=== PATIENT | female | born 1990 | race Caucasian/White ===

== ENCOUNTER 2018-08-07 16:57 | Emergency (ER) | payer SELFPAY ==
[2018-08-07] MEDS ORDERED: HYDROMORPHONE HCL INJ/PF 2 MG/ML AMPULE IV ONE (18:15)
--- NOTE | 2018-08-07 18:17 | ER Document Report ---
ED Medical Screen (RME) - General Chief Complaint: Back Injury Stated Complaint: BACK INJURY Time Seen by Provider: 08/07/18 17:49 Mode of Arrival: Ambulatory Information source: Patient Notes: Patient states that her grandfather was up in a tree and was about to fall out of the tree. Patient states that she got underneath him and told her grandfather that she would catch him. Patient reports that her grandfather fell about 10 feet out of the tree and landed on her upper chest area. Patient states that they both fell to the ground after she caught him. Patient states she felt a sudden pop in her back and since then has had pain to the back area both thoracic and lumbar. Patient states pain is worse along the bra strap and wraps around to the epigastrium of her abdomen. Patient does complain of some chest discomfort. Patient complains of pain with inspiration and states that she cannot stand up straight. Patient denies any previous history of back issues. I have greeted and performed a rapid initial assessment of this patient. A comprehensive ED assessment and evaluation of the patient, analysis of test results and completion of the medical decision making process will be conducted by additional ED providers. TRAVEL OUTSIDE OF THE [place] IN LAST 30 DAYS: No - Related Data Allergies/Adverse Reactions: codeine Allergy (Verified 08/07/18 16:59) Physical Exam - Vital signs Vitals: Temp Pulse Resp BP Pulse Ox 98.2 F 100 16 128/81 H 100 08/07/18 17:22 08/07/18 17:22 08/07/18 17:22 08/07/18 17:22 08/07/18 17:22 - Back Back: Vertebra tenderness - T5 through 8 spinal tenderness, lumbar tenderness Course - Re-evaluation Re-evalutation: 08/07/18 18:17 Consulted with radiologist regarding patient presentation and areas of tenderness. Recommends CT of the chest with contrast - Vital Signs Vital signs: Temp Pulse Resp BP Pulse Ox 98.2 F 100 16 128/81 H 100 08/07/18 17:22 08/07/18 17:22 08/07/18 17:22 08/07/18 17:22 08/07/18 17:22
[2018-08-07] MEDS ORDERED: ONDANSETRON HCL INJ/PF 4 MG/2 ML SDV IV ONE (18:41)
[2018-08-07 18:52] LABS: ABSOLUTE BASOPHILS # (AUTO) 0.1 10^3/uL (0.0-0.2); ABSOLUTE EOSINOPHILS # (AUTO) 0.2 10^3/uL (0.0-0.6); ABSOLUTE LYMPHOCYTES (AUTO) 3.1 10^3/uL (0.5-4.7); ABSOLUTE MONOCYTES (AUTO) 1.1 10^3/uL (0.1-1.4); ABSOLUTE NEUT (AUTO) 9.3 10^3/uL (1.7-8.2); BASOPHILS % (AUTO) 0.7 % (0-2); EOSINOPHILS % (AUTO) 1.3 % (0-6); HEMATOCRIT 38.5 % (36.0-47.0); HEMOGLOBIN 13.3 g/dL (12.0-15.5); LYMPHOCYTES % (AUTO) 22.6 % (13-45); MEAN CORPUSCULAR HEMOGLOBIN 29.9 pg (27.0-33.4); MEAN CORPUSCULAR HGB CONC 34.5 g/dL (32.0-36.0); MEAN CORPUSCULAR VOLUME 87 fl (80-97); MONOCYTES % (AUTO) 8.2 % (3-13); PLATELET COUNT 402 10^3/uL (150-450); RED BLOOD COUNT 4.44 10^6/uL (3.72-5.28); RED CELL DISTRIBUTION WIDTH 12.9 % (11.5-14.0); SEGMENTED NEUTROPHILS % (AUTO) 67.2 % (42-78); TOTAL CELLS COUNTED % (AUTO) 100 %; WHITE BLOOD COUNT 13.8 10^3/uL (4.0-10.5)
[2018-08-07 19:08] LABS: ANION GAP 13 (5-19); BLOOD UREA NITROGEN 11 mg/dL (7-20); CALCIUM 9.6 mg/dL (8.4-10.2); CARBON DIOXIDE 26 mmol/L (22-30); CHLORIDE 105 mmol/L (98-107); GLUCOSE 99 mg/dL (75-110); POTASSIUM 4.3 mmol/L (3.6-5.0); SODIUM 143.5 mmol/L (137-145)
--- NOTE | 2018-08-07 19:47 | RADIOLOGY REPORT (SQ) ---
EXAM DESCRIPTION: CT ABD/PELVIS WITH IV ONLY; CT CHEST WITH COMPLETED DATE/TIME: 08/07/2018 7:34 pm REASON FOR STUDY: person fell 10 ft onto pt, low back/abd pain; person fell 10 ft onto pt, Thoracic/ chest pain COMPARISON: None. CONTRAST TYPE AND DOSE: contrast/concentration: Isovue 350.00 mg/ml; Total Contrast Delivered: 77.0 ml; Total Saline Delivered: 67.0 ml RENAL FUNCTION: None required. The patient is less than 50 years old. TECHNIQUE: CT scan of the chest performed using helical scanning technique with dynamic intravenous contrast injection. Images reviewed with lung, soft tissue and bone windows. Reconstructed coronal a nd sagittal MPR images reviewed. All images stored on PACS. CT scan of the abdomen and pelvis performed with intravenous contrast using helical scanning techniqu e with dynamic intravenous contrast injection. Images reviewed with lung, soft tissue and bone windo ws. Reconstructed coronal and sagittal MPR images reviewed. Delayed images for evaluation of the ur inary system also acquired and evaluated. All images stored on PACS. All CT scanners at this facility use dose modulation, iterative reconstruction, and/or weight based d osing when appropriate to reduce radiation dose to as low as reasonably achievable (ALARA). [facility]: Dose Right [facility]: CareDose [facility]: Dose Right [facility]: Teradose 4D [facility]: Smart [employer] RADIATION DOSE: CT Rad equipment meets quality standard of care and radiation dose reduction techniq ues were employed. CTDIvol: 7.8 - 11.4 mGy. DLP: 1101 mGy-cm. . LIMITATIONS: None. FINDINGS: CHEST: AXILLAE: No adenopathy. CHEST WALL: No masses. No subcutaneous air. LUNGS: No nodules or masses. No pneumothorax. No infiltrates. PLEURA: No effusions. No calcifications. THYROID: No masses or significant asymmetry. HILAR AND MEDIASTINAL STRUCTURES: No identified masses or abnormal nodes. AORTA AND GREAT VESSELS: No aneurysm. No dissection. PULMONARY ARTERIES: No identified pulmonary emboli. Study not optimized for the pulmonary arteries. HEART: No pericardial effusion. HARDWARE AND LIFELINES: None. BONES: No significant finding. No fractures P OTHER: No other significant finding. ABDOMEN AND PELVIS: LIVER: Normal size. No masses. No dilated ducts. SPLEEN: Normal size. No focal lesions. PANCREAS: No masses. No significant calcifications. No adjacent inflammation or peripancreatic flui d collections. Pancreatic duct not dilated. GALLBLADDER: Surgically absent. ADRENAL GLANDS: No significant masses or asymmetry. RIGHT KIDNEY AND URETER: No solid masses. No significant calcifications. No hydronephrosis or hyd roureter. LEFT KIDNEY AND URETER: No solid masses. No significant calcifications. No hydronephrosis or hydr oureter. AORTA AND VESSELS: No aneurysm. No dissection. Renal arteries, SMA, celiac without stenosis. RETROPERITONEUM: No retroperitoneal adenopathy, hemorrhage or masses. LARGE AND SMALL BOWEL: No dilatation. No masses. No wall thickening. APPENDIX: Normal. ABDOMINAL WALL: No hernia or masses. PERITONEAL CAVITY: No free air. No free fluid. No peritoneal implants or masses. PELVIS: No mass or free fluid. Normal bladder. BONES: No significant or acute findings. No fractures. OTHER: No other significant finding. IMPRESSION: NORMAL CT OF THE CHEST WITH IV CONTRAST. NORMAL CT OF THE ABDOMEN AND PELVIS WITH INTRAVENOUS CONTRAST. TECHNICAL DOCUMENTATION: JOB ID: [id number] Quality ID # [id number]: Final reports with documentation of one or more dose reduction techniques (e.g., Au tomated exposure control, adjustment of the mA and/or kV according to patient size, use of iterative reconstruction technique) 2010 [employer]- All Rights Reserved Reading location - IP/workstation name: [email or web address]
[2018-08-07 19:53] LABS: APPEARANCE,URINE CLOUDY; BILIRUBIN,URINE NEGATIVE (NEGATIVE); COLOR,URINE YELLOW; GLUCOSE, URINE NEGATIVE (NEGATIVE); KETONES,URINE NEGATIVE (NEGATIVE); LEUKOCYTE ESTERASE,URINE MODERATE (NEGATIVE); NITRITE,URINE NEGATIVE (NEGATIVE); PROTEIN,URINE NEGATIVE (NEGATIVE); UROBILINOGEN,URINE NEGATIVE mg/dL (<2.0)
[2018-08-07] MEDS ORDERED: CYCLOBENZAPRINE HCL 10 MG TABLET PO ONE (20:11)
[2018-08-07] MEDS ORDERED: KETOROLAC TROMETHAMINE INJ/PF 30 MG/1 ML SDV IV ONE (20:11)
--- NOTE | 2018-08-07 20:52 | ER Document Report ---
ED General - General Chief Complaint: Back Injury Stated Complaint: BACK INJURY Time Seen by Provider: 08/07/18 17:49 Mode of Arrival: Ambulatory Notes: RME provider note: Patient states that her grandfather was up in a tree and was about to fall out of the tree. Patient states that she got underneath him and told her grandfather that she would catch him. Patient reports that her grandfather fell about 10 feet out of the tree and landed on her upper chest area. Patient states that they both fell to the ground after she caught him. Patient states she felt a sudden pop in her back and since then has had pain to the back area both thoracic and lumbar. Patient states pain is worse along the bra strap and wraps around to the epigastrium of her abdomen. Patient does complain of some chest discomfort. Patient complains of pain with inspiration and states that she cannot stand up straight. Patient denies any previous history of back issues. My Hpi: same as above PMH: Crohn's Medications: Calcium supplements and Depo Allergies: Codeine Surgical history: Cholecystectomy Patient denies cigarette smoking, denies illicit drug use, denies EtOH use. TRAVEL OUTSIDE OF THE [place] IN LAST 30 DAYS: No - Related Data Allergies/Adverse Reactions: codeine Allergy (Verified 08/07/18 16:59) Past Medical History - General Information source: Patient - Social History Smoking Status: Smoker,Current Status Unk Chew tobacco use (# tins/day): No Frequency of alcohol use: None Drug Abuse: None Lives with: Family Family History: Reviewed & Not Pertinent Patient has suicidal ideation: No Patient has homicidal ideation: No Renal/ Medical History: Denies: Hx Peritoneal Dialysis Review of Systems - Review of Systems Constitutional: No symptoms reported EENT: No symptoms reported Cardiovascular: See HPI Respiratory: See HPI Gastrointestinal: See HPI Genitourinary: No symptoms reported Female Genitourinary: No symptoms reported Musculoskeletal: See HPI Skin: No symptoms reported Hematologic/Lymphatic: No symptoms reported Neurological/Psychological: No symptoms reported Physical Exam - Vital signs Vitals: Temp Pulse Resp BP Pulse Ox 98.2 F 100 16 128/81 H 100 08/07/18 17:22 08/07/18 17:22 08/07/18 17:22 08/07/18 17:22 08/07/18 17:22 - Notes Notes: GENERAL: Alert, interacts well. No acute distress. HEAD: Normocephalic, atraumatic. EYES: Pupils equal, round, and reactive to light. Extraocular movements intact. ENT: Oral mucosa moist, tongue midline. Nares patent, no nasal septal hematoma, TM's intact, no hemotympanum bilaterally NECK: Full range of motion. Supple. Trachea midline. LUNGS: Clear to auscultation bilaterally, no wheezes, rales, or rhonchi. No respiratory distress. No crepitus or paradoxical motion noted on examination of chest HEART: Regular rate and rhythm. No murmur ABDOMEN: Soft, non-tender. Non-distended. Bowel sounds present in all 4 quadrants. Minor epigastrium pain upon palpation EXTREMITIES: Moves all 4 extremities spontaneously. No edema, normal radial and dorsalis pedis pulses bilaterally. No cyanosis. BACK: no cervical, lumbar midline tenderness. No saddle anesthesia, normal distal neurovascular exam. Patient does admit to some minor thoracic midline pain upon palpation that radiates around her bra line to her epigastrium NEUROLOGICAL: Alert and oriented x3. Normal speech. cranial nerves II through XII grossly intact. PSYCH: Normal affect, normal mood. SKIN: Warm, dry, normal turgor. No rashes or lesions noted. No bruising, erythema noted to entire trunk. Course - Re-evaluation Re-evalutation: 08/07/18 20:55 Discussed with patient at length her CT results. No signs of fractures or internal bleeding. Patient states she continues with generalized pain around her bra area. Discussed likely contusion of the area. Stated taking home Tylenol and Motrin and will prescribe Flexeril for muscle pain. 08/07/18 20:56 Patient is overall relieved that her CT scans came back negative. Discussed need to follow-up with primary care provider in the next 24-48 hours. Return precautions discussed. - Vital Signs Vital signs: Temp Pulse Resp BP Pulse Ox 98.2 F 100 16 128/81 H 100 08/07/18 17:22 08/07/18 17:22 08/07/18 17:22 08/07/18 17:22 08/07/18 17:22 - Laboratory Result Diagrams: 08/07/18 18:37 08/07/18 18:37 Laboratory results interpreted by me: 08/07/18 08/07/18 18:37 18:48 WBC 13.8 H Absolute Neutrophils 9.3 H Urine Blood SMALL H Ur Leukocyte Esterase MODERATE H Discharge - Discharge Clinical Impression: Rib pain Fall Qualifiers: Encounter type: initial encounter Qualified Code(s): W19.XXXA - Unspecified fall, initial encounter Condition: Stable Disposition: HOME, SELF-CARE Instructions: Anti-Inflammatory Medication ([facility]), Chest Wall Pain ([facility]), Muscle Strain ([facility]), Warm Packs ([facility]), Ice Packs ([facility]) Additional Instructions: As we discussed your CT images today revealed no signs of fracture or internal bleeding. You did sustain an injury and you may be in pain for the next couple of days. Please take [id number] Tylenol and Motrin. Please also take Flexeril as prescribed. Please make an appointment with your primary care provider in the next 24-40 hours. Please return to the emergency room for any other concerning symptoms. Prescriptions: Cyclobenzaprine HCl [Flexeril 10 mg Tablet] 10 mg PO TIDP PRN #15 tab PRN Reason:
[2018-08-07 21:33] VITALS: BP 115/76
== END 2018-08-07 21:33 | disposition home or self-care (01) ==
LOC: ER 16:57
DX: R07.81 Pleurodynia (principal); R10.13 Epigastric pain; M54.6 Pain in thoracic spine; M54.5 Low back pain; W18.39XA Other fall on same level, initial encounter; Y93.89 Activity, other specified; Z79.3 Long term (current) use of hormonal contraceptives; Z79.899 Other long term (current) drug therapy; Z88.5 Allergy status to narcotic agent
CPT/HCPCS: 99284; 96374; 96375; 36415; 84703; 85025; 80048; 81001; 71260; 74177; J1885; J1170; J2405

== ENCOUNTER 2019-12-25 21:26 | Emergency (ER) | payer SELFPAY ==
[2019-12-25 22:42] LABS: ABSOLUTE BASOPHILS # (AUTO) 0.2 10^3/uL (0.0-0.2); ABSOLUTE EOSINOPHILS # (AUTO) 0.5 10^3/uL (0.0-0.6); ABSOLUTE LYMPHOCYTES (AUTO) 3.4 10^3/uL (0.5-4.7); ABSOLUTE MONOCYTES (AUTO) 1.1 10^3/uL (0.1-1.4); BASOPHILS % (AUTO) 1.1 % (0-2); EOSINOPHILS % (AUTO) 3.4 % (0-6); MEAN CORPUSCULAR HGB CONC 34.8 g/dL (32.0-36.0); MEAN CORPUSCULAR VOLUME 89 fl (80-97); MONOCYTES % (AUTO) 7.6 % (3-13); PLATELET COUNT 383 10^3/uL (150-450); RED BLOOD COUNT 4.82 10^6/uL (3.72-5.28); RED CELL DISTRIBUTION WIDTH 13.2 % (11.5-14.0); SEGMENTED NEUTROPHILS % (AUTO) 63.9 % (42-78); TOTAL CELLS COUNTED % (AUTO) 100 %
[2019-12-25 22:50] LABS: APPEARANCE,URINE SLIGHTLY-CLOUDY; BILIRUBIN,URINE NEGATIVE (NEGATIVE); COLOR,URINE YELLOW; GLUCOSE, URINE NEGATIVE (NEGATIVE); KETONES,URINE NEGATIVE (NEGATIVE); LEUKOCYTE ESTERASE,URINE NEGATIVE (NEGATIVE); NITRITE,URINE NEGATIVE (NEGATIVE); PROTEIN,URINE NEGATIVE (NEGATIVE); URINE SPECIFIC GRAVITY 1.024; UROBILINOGEN,URINE NEGATIVE mg/dL (<2.0)
[2019-12-25 23:11] LABS: ALBUMIN 4.6 g/dL (3.5-5.0); ALKALINE PHOSPHATASE 49 U/L (38-126); ANION GAP 8 (5-19); ASPARTATE AMINO TRANSFERASE 24 U/L (14-36); BILIRUBIN,TOTAL 0.3 mg/dL (0.2-1.3); BLOOD UREA NITROGEN 16 mg/dL (7-20); CALCIUM 10.4 mg/dL (8.4-10.2); CARBON DIOXIDE 24 mmol/L (22-30); CHLORIDE 106 mmol/L (98-107); GLUCOSE 96 mg/dL (75-110); POTASSIUM 4.8 mmol/L (3.6-5.0); TOTAL PROTEIN 7.3 g/dL (6.3-8.2)
[2019-12-26] MEDS ORDERED: KETOROLAC TROMETHAMINE INJ/PF 30 MG/1 ML SDV IV ONE (01:33)
--- NOTE | 2019-12-26 01:39 | ER Document Report ---
ED General - General Chief Complaint: Abdominal Pain Stated Complaint: ABDOMINAL PAIN Time Seen by Provider: 12/26/19 00:59 Notes: 29-year-old generally healthy female with history of cholecystectomy and endometriosis presents to the emergency department with chief complaint of worsening right lower quadrant pain. Patient states that she has a history of ovarian cysts and on Sunday initially thought that she had a ruptured cyst. She said symptoms were very consistent with the previous ruptures. Patient states that on Sunday she started having right sided abdominal pain that was different from her pelvic pain. Of note she does still have lingering bilateral pelvic pain. Patient states that she has associated nausea with no vomiting, mild chills with no fever, and increased appetite. Patient states that she has had 2 recent bowel movements. No abnormal vaginal discharge, no abnormal vaginal bleeding. No dysuria/urinary frequency/urgency. Patient is not sexually active and is on Depo-Provera. No other complaints TRAVEL OUTSIDE OF THE [place] IN LAST 30 DAYS: No - Related Data Allergies/Adverse Reactions: codeine Allergy (Verified 12/25/19 22:00) Home Medications: DEPO. ZYRTEC. CALCIUM. FIBER Past Medical History - Social History Smoking Status: Current Every Day Smoker Family History: Reviewed & Not Pertinent Patient has suicidal ideation: No Patient has homicidal ideation: No Renal/ Medical History: Denies: Hx Peritoneal Dialysis Review of Systems - Review of Systems Constitutional: See HPI EENT: No symptoms reported Cardiovascular: See HPI Respiratory: See HPI Gastrointestinal: See HPI Genitourinary: See HPI Female Genitourinary: See HPI Musculoskeletal: No symptoms reported Skin: No symptoms reported Hematologic/Lymphatic: No symptoms reported Neurological/Psychological: No symptoms reported Physical Exam - Vital signs Vitals: Temp Pulse Resp BP Pulse Ox 98.7 F 86 22 H 127/88 H 97 12/25/19 21:31 12/25/19 21:31 12/25/19 21:31 12/25/19 21:31 12/25/19 21:31 - Notes Notes: PHYSICAL EXAMINATION: Reviewed vital signs and charting by RN GENERAL: Alert, interacts well. No acute distress. HEAD: Normocephalic, atraumatic. EYES: Pupils equal and round. Extraocular movements intact. ENT: Oral mucosa moist, tongue midline. NECK: Full range of motion. Trachea midline. LUNGS: Clear to auscultation bilaterally, no wheezes, rales, or rhonchi. No respiratory distress. HEART: Regular rate and rhythm. No murmur ABDOMEN: Soft, acute tenderness to palpation right lower quadrant with rebound tenderness, pain with heel strike. No distention. Bowel sounds present EXTREMITIES: Moves all 4 extremities spontaneously. No edema, No cyanosis. PSYCH: Normal affect, normal mood. SKIN: Warm, dry, normal turgor. No rashes or lesions noted. Course - Re-evaluation Re-evalutation: 12/26/19 01:38 Patient is nontoxic-appearing. Vital signs have been reviewed nursing notes reviewed. Patient presents with right lower quadrant abdominal pain x48 hours. I am going to order a CT abdomen/pelvis with IV contrast. Differential includes appendicitis versus ovarian cysts versus nephrolithiasis. I do not suspect she has a tubo-ovarian abscess or any significant pathology as she is not sexually active and has reported no discharge. Patient does have a leukocytosis of 14,000. 12/26/19 03:22 CT abdomen pelvis with IV contrast did not show any evidence of an acute appendicitis. It did show a right ovarian cyst which could potentially correlate with her symptoms. Also, because of her history of endometriosis and frequent cysts that does put her at a higher risk for ovarian torsion. After a lengthy discussion with the patient she did agree to proceed with a transvaginal ultrasound to rule out torsion. 12/26/19 04:48 Transvaginal ultrasound did not show any evidence of ovarian torsion or any significant pathology. I have explained all this to patient and instruct her to follow-up with her primary doctor. At this time she is stable for discharge. - Vital Signs Vital signs: Temp Pulse Resp BP Pulse Ox 98.7 F 75 16 122/78 99 12/26/19 01:53 12/26/19 01:53 12/26/19 01:53 12/26/19 01:53 12/26/19 01:53 - Laboratory Result Diagrams: 12/25/19 22:20 12/25/19 22:20 Laboratory results interpreted by me: 12/25/19 12/25/19 12/25/19 22:20 22:20 22:20 WBC 14.0 H Absolute Neuts (auto) 9.0 H Calcium 10.4 H ALT 36 H Urine Blood SMALL H Discharge - Discharge Clinical Impression: Right lower quadrant abdominal pain Ovarian cyst Qualifiers: Laterality: right Qualified Code(s): N83.201 - Unspecified ovarian cyst, right side Condition: Good Disposition: HOME, SELF-CARE Additional Instructions: You were seen in the emergency department for right lower abdominal pain and pelvic pain. You had a thorough work-up which did not show any acute pathology. It did show that you had an ovarian cyst on your right fallopian tube tube /ovary. This could potentially be explaining your pain but it is reassuring that there is no surgical emergency identified today. Please follow-up with your primary doctor as needed. Please return to the emergency department if you have worsening, severe abdominal pain, severe shortness of breath, you pass out, you have any concerning discharge or vaginal bleeding, or you have any other concerning symptoms.
--- NOTE | 2019-12-26 03:12 | RADIOLOGY REPORT (SQ) ---
CT abdomen and pelvis with contrast on 12/26/2019 at 2:25 AM CLINICAL INDICATION: Right lower quadrant pain TECHNIQUE: Multiple axial images are obtained throughout the abdomen and pelvis following the administration of IV contrast, 85 mL of Omnipaque 350contrast was administered intravenously without complication. This exam was performed according to our departmental dose-optimization program, which includes automated exposure control, adjustment of the mA and/or kV according to patient size and/or use of iterative reconstruction technique. Total DLP is 777.84 mGy*cm. COMPARISON: 08/07/2018 FINDINGS: Abdomen: The lung bases are clear. The patient is status post cholecystectomy. Solid abdominal organs are unremarkable. There is no abdominal adenopathy. There is no free fluid or free air within the abdomen. The abdominal portion of the GI tract is unremarkable. Pelvis: There is a simple appearing 2.6 x 1.7 x 2.0 cm dominant follicle in the right ovary which should be considered benign with no follow-up recommended. Uterus is retroverted/retroflexed. Pelvic organs otherwise appear unremarkable by CT. No free fluid is noted in the pelvis. There is no pelvic adenopathy. The pelvic portion of the GI tract including the appendix is unremarkable. No bony abnormality is noted. IMPRESSION: Essentially unremarkable exam.
--- NOTE | 2019-12-26 04:41 | RADIOLOGY REPORT (SQ) ---
Ultrasound pelvis transvaginal on 12/26/2019 3:53 AM CLINICAL INDICATION: Right lower quadrant pain, question ovarian torsion COMPARISON: CT from 12/26/2019 FINDINGS: Multiple sonographic images are obtained throughout the pelvis by transvaginal approach, both transverse and sagittal images are obtained. Uterus is retroverted/retroflexed. Uterus measures approximately 6.1 x 3.0 x 3.9 cm. Endometrial stripe measures 5 mm which is within normal limits. Uterine myometrium appears homogeneous. The right ovary measures approximately 2.4 x 3.4 x 2.2 cm. Within the right ovary there is a 2.7 x 1.7 x 1.6 cm dominant follicle which should be considered benign with no follow-up recommended. Flow is demonstrated in the right ovary. The left ovary measures approximately 2.1 x 1.2 x 1.5 cm. Flow is demonstrated in the left ovary. No adnexal mass or fluid collection is noted. IMPRESSION: Essentially unremarkable exam.
[2019-12-26 06:15] VITALS: BP 109/64
== END 2019-12-26 05:40 | disposition home or self-care (01) ==
LOC: ER 21:26
DX: N83.201 Unspecified ovarian cyst, right side (principal); R10.31 Right lower quadrant pain; R11.0 Nausea; Z90.49 Acquired absence of other specified parts of digestive tract; Z88.8 Allergy status to other drugs, medicaments and biological substances; Z79.899 Other long term (current) drug therapy; F17.200 Nicotine dependence, unspecified, uncomplicated
CPT/HCPCS: 99284; 96374; 36415; 84702; 83690; 85025; 80053; 81001; 76830; 93976; 74177; J1885